=== PATIENT | male | born 1980 | race Caucasian/White ===

== ENCOUNTER 2017-09-11 15:39 | Outpatient (CLI) | payer BC ==
--- NOTE | 2017-09-11 22:10 | MRI Report ---
Procedure Date: 09/11/2017 Accession Number: [id number] / [id number] Procedure: MRI - Knee LT W/O CPT Code: FULL RESULT: EXAM: LEFT KNEE MRI WITHOUT CONTRAST EXAM DATE: 09/11/2017 04:57 PM. CLINICAL HISTORY: Left knee sprain COMPARISON: Knee 3 view left 07/19/2017 8:57 AM. TECHNIQUE: Multiplanar, multisequence T1-weighted and fluid-sensitive sequences of the knee without contrast. Other: None. FINDINGS: Bones: No fractures or subluxations. No marrow edema. No bone lesions. Articular Cartilage: Unremarkable. Medial Meniscus: The medial meniscus is intact. Lateral Meniscus: The lateral meniscus is intact. Cruciate Ligaments: The anterior and posterior cruciate ligaments are intact. Collateral Ligaments: The medial collateral and lateral collateral ligamentous structures are intact. Tendons: The quadriceps, patellar, semimembranosus, and popliteus tendons are unremarkable. Musculature: No edema or fatty atrophy. Other: Very small joint effusion. No popliteal cyst. No loose bodies. The medial and lateral retinacula are intact. Trace amount of fluid at the prepatellar and superficial infrapatellar bursae. Mild subcutaneous edema anterior to the patella and patellar tendon. IMPRESSION: 1. Trace amount of fluid at the prepatellar and superficial infrapatellar bursae and mild subcutaneous edema anterior to the patella and patellar tendon. This may be inflammatory or posttraumatic. 2. No acute fracture. 3. No ligament or meniscal injury. [facility] MUSCULOSKE[facility] RADIOLOGY SECTION
== END 2017-09-11 15:40 | disposition home or self-care (01) ==
LOC: DI 15:39
PROVIDERS: ATTEND Family Medicine
DX: S83.8X2A Sprain of other specified parts of left knee, initial encounter (principal)

== ENCOUNTER 2019-09-27 11:21 | Outpatient (CLI) | payer BC ==
--- NOTE | 2019-09-27 17:35 | XRAY Report ---
PROCEDURE: Elbow 3 View LT INDICATIONS: LET ELBOW PAIN TECHNIQUE: 3 views of the elbow were acquired. COMPARISON: None FINDINGS: Bones: No fractures or dislocations. No suspicious bony lesions. Mild elbow joint osteoarthritic de generative changes. Multiple ossifications project over the elbow joint ranging in size from 4-15 mm concerning for intra-articular loose bodies. Soft tissues: No elbow joint effusion. No suspicious soft tissue calcifications. IMPRESSION: 1. Mild osteoarthritis. 2. Probable multiple ossified intra-articular loose bodies. Recommend MRI of the elbow for definitive characterization if clinically indicated. Reviewed by: Kimmy Hernandez MD, PhD on 09/27/2019 5:29 PM PDT Approved by: Kimmy Hernandez MD, PhD on 09/27/2019 5:29 PM PDT Station ID: [id number]
== END 2019-09-27 11:22 | disposition home or self-care (01) ==
LOC: DI.N 11:21
PROVIDERS: ATTEND Family Medicine
DX: M19.022 Primary osteoarthritis, left elbow (principal)

== ENCOUNTER 2020-03-31 15:42 | Emergency (ER) | payer OTHER, BC ==
--- NOTE | 2020-03-31 16:08 | ED Physician Documentation ---
PD HPI LOWER EXT INJURY - Stated complaint Stated Complaint: L [place] INJURY - Chief complaint Chief Complaint: Laceration - History obtained from History obtained from: Patient - History of Present Illness PD HPI LOW EXT INJURY LOCATION: Left Type of injury: Laceration (from exposed metal) Where injury occurred: Street (jumping out of trailer and slipped.) Review of Systems Constitutional: denies: Fever, Chills Cardiac: reports: Reviewed and negative Respiratory: reports: Reviewed and negative PD PAST MEDICAL HISTORY - Past Medical History Past Medical History: No - Past Surgical History Past Surgical History: No - Present Medications Home Medications: Ambulatory Orders Medication Instructions Recorded Confirmed No Known Home Medications 10/09/13 03/31/20 - Allergies Allergies/Adverse Reactions: Allergies Allergy/AdvReac Type Severity Reaction Status Date / Time No Known Drug Allergies Allergy Verified 03/31/20 15:55 - Social History Does the pt smoke?: Yes Smoking Status: Current every day smoker Does the pt drink ETOH?: Yes Does the pt have substance abuse?: No - Immunizations Immunizations are current?: Yes - POLST Patient has POLST: No PD ED PE NORMAL - Vitals Vital signs reviewed: Yes - General General: Alert and oriented X 3, No acute distress - HEENT HEENT: PERRL, EOMI - Extremities Extremities: Other (1 small 1 cm lac L [place] and 1 2cm lac. NTTP, FROM) - Neuro Neuro: Alert and oriented X 3, Normal speech Results - Vitals Vitals: Vital Signs - 24 hr 03/31/20 03/31/20 15:53 16:25 Temperature 36.9 C 36.8 C Heart Rate 105 H 90 Respiratory 16 16 Rate Blood Pressure 124/91 H 120/88 H O2 Saturation 95 98 Oxygen O2 Source Room air Procedures - Laceration (location) LLE Length in cm: 3 Wound type: Linear, Into subcut fat Neurovascular status: Sensory intact, Motor intact, Vascular intact Anesthesia: Lidocaine 1% with epi Wound preparation: Irrigated copiously NS Skin layer closure: Nylon, Interrupted, Size #-0 - enter number (3-0), Sutures - enter # (7) Other: Patient tolerated well, No complications, Tetanus UTD Departure - Departure Disposition: Home, Self Care Clinical Impression: Laceration Condition: Good Record reviewed to determine appropriate education?: Yes Instructions: ED Laceration All Comments: Come back for any signs of infection which would include: Redness, swelling, drainage, increased pain, or fevers. You can wash it soap and water. Keep it covered and moist with bacitracin ointment which is available over the counter; avoid neosporin. Follow-up with your physician in 14 days for suture removal. Discharge Date/Time: 03/31/20 16:25
[2020-03-31 16:25] VITALS: BP 120/88
== END 2020-03-31 16:25 | disposition home or self-care (01) ==
LOC: ED 15:42
DX: S81.812A Laceration without foreign body, left lower leg, initial encounter (principal); W17.89XA Other fall from one level to another, initial encounter; W26.8XXA Contact with other sharp object(s), not elsewhere classified, initial encounter; Y93.39 Activity, other involving climbing, rappelling and jumping off; Y92.410 Unspecified street and highway as the place of occurrence of the external cause; F17.200 Nicotine dependence, unspecified, uncomplicated
CPT/HCPCS: 1040M; 12001; 99281; 99282

== ENCOUNTER 2022-07-26 16:17 | Emergency (ER) | payer OTHER, BC ==
[2022-07-26 16:35] VITALS: BP 129/67
[2022-07-26] MEDS ORDERED: BUPIVACAINE 0.5% PF 10 ML VIAL SUBQ STA (16:40)
--- NOTE | 2022-07-26 16:41 | ED Physician Documentation ---
PD HPI UPPER EXT INJURY - Stated complaint Stated Complaint: FINGER INJURY - Chief complaint Chief Complaint: Laceration - History obtained from History obtained from: Patient - Additonal information Additional information: 42-year-old right-handed gentleman who is up-to-date on tetanus got his right index finger caught in the belt of a lawnmower at home just prior to arrival and has a cut on the dorsum of the right index finger. No other injuries. PD PAST MEDICAL HISTORY - Past Surgical History Past Surgical History: No - Present Medications Home Medications: Ambulatory Orders Medication Instructions Recorded Confirmed No Known Home Medications 10/09/13 07/26/22 - Allergies Allergies/Adverse Reactions: Allergies Allergy/AdvReac Type Severity Reaction Status Date / Time No Known Drug Allergies Allergy Verified 07/26/22 16:34 - Social History Does the pt smoke?: Yes Smoking Status: Current every day smoker Does the pt drink ETOH?: Yes Does the pt have substance abuse?: No - Immunizations Immunizations are current?: Yes - POLST Patient has POLST: No PD ED PE NORMAL - Vitals Vital signs reviewed: Yes - General General: Alert and oriented X 3, No acute distress - Extremities Extremities: Other (There is a 2 cm laceration on the dorsum of the right index finger just proximal to the DIP. He has intact flexion and extension strength. Normal neurovascular function of the tip.) - Neuro Neuro: Alert and oriented X 3, Normal speech Results - Vitals Vitals: Vital Signs - 24 hr 07/26/22 16:31 Temperature 36.7 C Heart Rate 76 Respiratory 16 Rate Blood Pressure 129/67 O2 Saturation 98 Oxygen O2 Source Room air - Rads (name of study) three-view x-ray of the right index finger is without acute trauma. He does have an old fracture of the right middle finger sustained 11 years ago. Relevant Findings:: Final report received, EMP independent interpretation of test Procedures - Laceration (location) R 2nd finger Length in cm: 2 Wound type: Linear, Into subcut fat Neurovascular status: Sensory intact, Motor intact Tendon involvement: Tendon intact (Parts of the extensor tendon were visible but not freed) Anesthesia: Marcaine 0.5% (Digital block) Wound preparation: Hibiclens, Irrigated copiously NS Skin layer closure: Nylon, Interrupted, Size #-0 - enter number (4-0), Sutures - enter # (5) Other: Patient tolerated well, No complications, Tetanus UTD PD Medical Decision Making - ED course Complexity details: other (L&I paperwork [id number] completed and submitted) Departure - Departure Disposition: 01 Home, Self Care Clinical Impression: Finger laceration Qualifiers: Encounter type: initial encounter Finger: index finger Damage to nail status: without damage Foreign body presence: without foreign body Laterality: right Qualified Code(s): S61.210A - Laceration without foreign body of right index finger without damage to nail, initial encounter Condition: Good Record reviewed to determine appropriate education?: Yes Instructions: ED Laceration Hand Comments: Come back for any signs of infection which would include: Redness, swelling, drainage, increased pain, or fevers. You can wash it soap and water. Keep it covered and moist with bacitracin ointment which is available over the counter; avoid neosporin. Follow-up with your physician in about 14 days for suture removal. Discharge Date/Time: 07/26/22 17:30
--- NOTE | 2022-07-26 17:21 | XRAY Report ---
PROCEDURE: Finger(s) RT INDICATIONS: index finger inj TECHNIQUE: AP hand, 2 views of the second digit acquired. COMPARISON: None. FINDINGS: Bones: No acute fracture or dislocation identified. Remote appearing deformity of the third digit di stal phalanx involving the tuft, likely sequela of prior trauma. Soft tissues: No suspicious soft tissue calcifications . IMPRESSION: No acute bony abnormality. If pain persists with conservative management, consider repeat radiographs in 10-14 days or cross-sectional imaging. Reviewed by: Morales Mckeon MD on 07/26/2022 5:20 PM PDT Approved by: Morales Mckeon MD on 07/26/2022 5:20 PM PDT Station ID: [id number]
== END 2022-07-26 17:30 | disposition home or self-care (01) ==
LOC: ED 16:17
DX: S61.210A Laceration without foreign body of right index finger without damage to nail, initial encounter (principal); W31.89XA Contact with other specified machinery, initial encounter; Y93.89 Activity, other specified; F17.200 Nicotine dependence, unspecified, uncomplicated
CPT/HCPCS: 12001; 99283